=== PATIENT | female | born 1985 | race Caucasian/White ===

== ENCOUNTER 2019-09-20 15:32 | Observation (INO) | payer OTHER ==
[~2019-09-20] VITALS: Ht 170.2 cm; Wt 81.9 kg
[2019-09-20] MEDS ORDERED: MULTCAP PO (16:12)
[2019-09-20 16:44] LABS: BASO % 0.3 % (0.0-1.0); EOS % 0.1 % (0.0-3.0); HEMATOCRIT 44.9 % (36.0-47.0); HEMOGLOBIN 14.4 g/dl (12.0-15.5); LYMPH # 1.1 10^3/uL (1.5-5.0); LYMPH % 12.4 % (24.0-44.0); MEAN CORPUSCULAR HEMOGLOBIN 28.8 pg (27.0-33.0); MEAN CORPUSCULAR HGB CONC 32.1 g/dl (32.0-36.5); MEAN CORPUSCULAR VOLUME 89.8 fl (80.0-96.0); MONO # 0.5 10^3/uL (0.0-0.8); MONO % 5.6 % (0.0-5.0); NEUTROPHILS # 7.3 10^3/uL (1.5-8.5); NEUTROPHILS % 81.4 % (36.0-66.0); PLATELET COUNT, AUTOMATED 212 10^3/uL (150-450); WHITE BLOOD COUNT 8.9 10^3/uL (4.0-10.0)
[2019-09-20 16:55] LABS: PROTHROMBIN TIME 12.9 SECONDS (11.8-14.0)
[2019-09-20 16:56] LABS: PARTIAL THROMBOPLASTIN TIME 27.5 SECONDS (25.0-38.4)
[2019-09-20 17:07] LABS: CK-MB VALUE MASS 1.2 NG/ML (<3.6); CPK CREATINE PHOSPHOKINASE 107 U/L (26-192); MB/CK RELATIVE INDEX 1.12 (< OR =4); TROPONIN I < 0.02 NG/ML (< 0.10)
[2019-09-20] MEDS ORDERED: METOCLOPRAMIDE INJ 10MG/2ML VIAL (J2765 PER 1) IV ONE (17:15)
[2019-09-20 17:42] LABS: AMPHETAMINES LEVEL URINE NEGATIVE (NEGATIVE); BARBITURATES URINE NEGATIVE (NEGATIVE); BENZODIAZEPINES URINE NEGATIVE (NEGATIVE); CANNABINOIDS URINE NEGATIVE (NEGATIVE); COCAINE METABOLITE URINE NEGATIVE (NEGATIVE); METHADONE URINE NEGATIVE (NEGATIVE); OPIATES URINE NEGATIVE (NEGATIVE); PHENCYCLIDINE URINE NEGATIVE (NEGATIVE)
--- NOTE | 2019-09-20 17:48 | ECGEPIP ---
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
--- NOTE | 2019-09-20 19:22 | REPVR ---
PROCEDURE INFORMATION: Exam: MR Head Without Contrast Exam date and time: 09/20/2019 6:50 PM Age: 34 years old Clinical indication: Numbness / parasthesia; Left; Patient HX: Sudden onset of high BP, h/a, blurry vision and lt side weakness, that has since subsided, nki; Additional info: Vision loss TECHNIQUE: Imaging protocol: MR of the head without contrast. COMPARISON: CT Head without contrast 09/20/2019 3:59 PM FINDINGS: Brain: There are scattered T2/FLAIR hyperintensities in the periventricular white matter of bilateral hemispheres. No acute infarct. Ventricles: Normal. No ventriculomegaly. Bones/joints: Unremarkable. Sinuses: Normal as visualized. No acute sinusitis. Mastoid air cells: Normal as visualized. No mastoid effusion. Orbits: Unremarkable. Soft tissues: Unremarkable. Other findings: No hemorrhage. IMPRESSION: Scattered T2/FLAIR hyperintensities in the periventricular white matter of bilateral hemispheres. Findings may suggest demyelinating disease. Electronically signed by: Maury Quesada On 09/20/2019 19:22:18 PM
--- NOTE | 2019-09-20 19:41 | REPVR ---
PROCEDURE INFORMATION: Exam: MR Angiogram Head Without Contrast, Arteries Exam date and time: 09/20/2019 6:50 PM Age: 34 years old Clinical indication: Numbness; Patient HX: Sudden onset of high BP, h/a, blurry vision and lt side weakness, that has since subsided, nki; Additional info: Vision loss TECHNIQUE: Imaging protocol: MR angiogram head without contrast. Exam focused on the arteries. 3D rendering: MIP and/or 3D reconstructed images were created by the technologist. COMPARISON: CT Head without contrast 09/20/2019 3:59 PM FINDINGS: Anterior cerebral arteries: Intracranial segment is patent with no significant stenosis. No aneurysm. Right internal carotid artery: Intracranial segment is patent with no significant stenosis. No aneurysm. Right middle cerebral artery: No occlusion or significant stenosis. No aneurysm. Right posterior cerebral artery: No occlusion or significant stenosis. No aneurysm. Right vertebral artery: No occlusion or significant stenosis. No aneurysm. Left internal carotid artery: Intracranial segment is patent with no significant stenosis. No aneurysm. Left middle cerebral artery: No occlusion or significant stenosis. No aneurysm. Left posterior cerebral artery: No occlusion or significant stenosis. No aneurysm. Left vertebral artery: No occlusion or significant stenosis. No aneurysm. Basilar artery: No occlusion or significant stenosis. No aneurysm. IMPRESSION: No acute abnormality. Electronically signed by: Maury Quesada On 09/20/2019 19:41:32 PM
[2019-09-20] MEDS ORDERED: METOPROLOL TART 25 MG TABLET PO ONE (20:45)
[2019-09-20] MEDS ORDERED: lisinopriL 20 MG TAB PO ONE (20:45)
[2019-09-20] MEDS ORDERED: ACETAMINOPHEN TAB 650MG DOSE (2X325MG) PO PRN (20:45)
--- NOTE | 2019-09-20 20:46 | HPEPDOC ---
General Date of Admission 09/20/19 Date of Service: Sep 20, 2019 Chief Complaint The patient is a 34-year-old female admitted with a reason for visit of Migraine. Source: Patient Timing/Duration: 4-6 hours Severity: Moderate History of Present Illness Patient is 34 years old female with significant past medical history of migraine presented to the hospital with left arm paresthesia and blurry vision. Patient stated that in the morning she developed blurriness of the vision for both eyes and loss of vision for a few seconds for left eye, painless. Patient never had symptoms before. In ER CT head was negative for stroke. MRI of the brain showed Scattered T2/FLAIR hyperintensities in the periventricular white matter of bilateral hemispheres. Findings may suggest demyelinating disease. Also patient was found to have elevated blood pressure of 193/88 with tachycardia. Home Medications Scheduled Multivitamin (Multivitamins) 1 Each Capsule, 1 CAP PO DAILY, (Reported) Allergies Coded Allergies: No Known Allergies (Unverified , 09/20/19) Past Medical History Medical History Migraine, one episode of pancreatitis in the young age Family History Both parents have hypertension Social History * Smoker: Denies Alcohol: occationally Drugs: denies A-FIB/CHADSVASC A-FIB History Current/History of A-Fib/PAF?: No Current PO Anticoag Therapy: No Review of Systems Constitutional: Denies: Chills, Fever Eyes: Reports: Vision change ENT: Reports: Head Aches Skin: Denies: Rash, Lesions Pulmonary: Denies: Dyspnea Cardiovascular: Denies: Chest Pain Gastrointestinal: Denies: Vomiting Hematologic: Denies: Bruising, Bleeding Excessively Endocrine: Denies: Polydipsia Musculoskeletal: Denies: Neck Pain Neurological: Reports: Other Symptoms (left arm paresthesia, vision blurriness) Psych: Reports: Mood Normal Physical Examination General Exam: Positive: Alert, Cooperative, Moderate Distress Eye Exam: Positive: PERRLA ENT Exam: Positive: Atraumatic Neck Exam: Positive: Supple; Negative: JVD Chest Exam: Positive: Clear to auscultation Heart Exam: Positive: Rate Normal Telemetry: Positive: No significant arrhythmia Abdomen Exam: Positive: Normal bowel sounds Extremity Exam: Negative: Clubbing Skin Exam: Positive: Nl turgor and temperature Neuro Exam: Positive: Normal Gait, Strength at 5/5 X4 ext, Normal Tone, Cranial Nerves 3-12 NL, Reflexes 2+ Vital Signs Vital Signs Date Time Temp Pulse Resp B/P (MAP) Pulse Ox O2 Delivery O2 Flow Rate FiO2 09/20/19 19:46 99.5 111 18 176/81 (112) 99 Room Air Laboratory Data Labs 24H Laboratory Tests 2 09/20/19 16:23: Immature Granulocyte % (Auto) 0.2, Neutrophils (%) (Auto) 81.4H, Lymphocytes (%) (Auto) 12.4L, Monocytes (%) (Auto) 5.6H, Eosinophils (%) (Auto) 0.1, Basophils (%) (Auto) 0.3, Neutrophils # (Auto) 7.3, Lymphocytes # (Auto) 1.1L, Monocytes # (Auto) 0.5, Eosinophils # (Auto) 0.0, Basophils # (Auto) 0.0, Nucleated Red Blood Cells % (auto) 0.0, Prothrombin Time 12.9, Prothromb Time International Ratio 1.00, Activated Partial Thromboplast Time 27.5, Total Creatine Kinase 107, Creatine Kinase MB 1.2, Creatine Kinase MB Relative Index 1.12, Troponin I < 0.02 09/20/19 16:24: POC Glucose (Misc Panel) 84, POC Sodium (Misc Panel) 139, POC Potassium (Misc Panel) 3.8, POC Chloride (Misc Panel) 105, POC Total CO2 (Misc Panel) 20.0L, POC Blood Urea Nitrogen (Misc Panel 22, POC Ionized Calcium (Misc Panel) 4.8, POC Creatinine (Misc Panel) 1.0, POC Hematocrit (Misc Panel) 46.0 09/20/19 16:26: POC Beta HCG, Quantitative < 5.0 09/20/19 17:09: Urine Color STRAW, Urine Appearance CLEAR, Urine pH 6.0, Urine Specific [place] 1.006, Urine Protein NEGATIVE, Urine Glucose (UA) NEGATIVE, Urine Ketones 1+H, Urine Blood NEGATIVE, Urine Nitrite NEGATIVE, Urine Bilirubin NEGATIVE, Urine Urobilinogen 0.2, Urine Leukocyte Esterase NEGATIVE, Urine WBC (Auto) 1, Urine RBC (Auto) 0, Urine Hyaline Casts (Auto) 0, Urine Bacteria (Auto) 1+H, Urine Squamous Epithelial Cells 1, Urine Sperm (Auto) , Urine Opiates Screen NEGATIVE, Urine Methadone Screen NEGATIVE, Urine Barbiturates Screen NEGATIVE, Urine Phencyclidine Screen NEGATIVE, Urine Amphetamines Screen NEGATIVE, Urine Benzodiazepines Screen NEGATIVE, Urine Cocaine Metabolite Screen NEGATIVE, Urine Cannabinoids Screen NEGATIVE CBC/BMP Laboratory Tests 09/20/19 16:23 Assessment/Plan Patient is 34 years old female with significant past medical history of migraine presented to the hospital with left arm paresthesia and blurry vision. Patient stated that in the morning she developed blurriness of the vision for both eyes and loss of vision for a few seconds for left eye, painless. Patient never had symptoms before. In ER CT head was negative for stroke. MRI of the brain showed Scattered T2/FLAIR hyperintensities in the periventricular white matter of bilateral hemispheres. Findings may suggest demyelinating disease. Also patient was found to have elevated blood pressure of 193/88 with tachycardia. Problems (1) Vision changes Status: Acute Problem Text: MRI showed MRI of the brain showed Scattered T2/FLAIR hyperintensities in the periventricular white matter of bilateral hemispheres I talked to neurologist Dr Hogan, he recommended MRI of the brain with sequences There is concern for multiple sclerosis flare (2) Demyelinating disorder Status: Acute Problem Text: We will proceed with brain MRI and neck MRI with contrast (3) Hypertensive urgency Status: Acute Problem Text: Most likely due to acute stress due to aforementioned symptoms Lisinopril 20 mg by mouth We'll give labetalol IV if blood pressure continues to be elevated Plan / VTE VTE Prophylaxis Ordered?: No VTE Exclusion Mechanical Proph: Low Risk for VTE WINSTON HOOD DO Sep 20, 2019 20:46
[2019-09-20] MEDS ORDERED: PILL CUTTER 1 EACH XX ONE (22:01)
[2019-09-20 22:04] VITALS: BP 142/91
[2019-09-20] MEDS ORDERED: PROHANCE 279.3MG/ML 15ML VIAL As Ordered ONE (23:47)
[2019-09-20] MEDS ORDERED: PROHANCE 279.3MG/ML 5ML VIAL As Ordered ONE (23:47)
--- NOTE | 2019-09-21 00:34 | REPVR ---
PROCEDURE INFORMATION: Exam: MR Cervical Spine Without and With Contrast Exam date and time: 09/20/2019 11:13 PM Age: 34 years old Clinical indication: Numbness; Patient HX: Sudden onset of high BP, h/a, blurry vision and lt side weakness, that has since subsided, nki prior from earlier today on pacs, R/O ms TECHNIQUE: Imaging protocol: Multiplanar magnetic resonance images of the cervical spine without and with intravenous contrast. Contrast material: PROHANCE; Contrast volume: 16 ml; Contrast route: INTRAVENOUS (IV); COMPARISON: No relevant prior studies available. FINDINGS: Vertebrae: Unremarkable. No abnormal enhancement. Spinal cord: Normal signal. No cord compression. No abnormal enhancement. C2-C3: No significant disc disease. No significant spinal stenosis. C3-C4: No significant disc disease. No significant spinal stenosis. C4-C5: No significant disc disease. No significant spinal stenosis. C5-C6: Posterior disc bulge with annular fissure causing mild central spinal canal stenosis. Mild right neural foraminal narrowing. Left neural foramina is patent. C6-C7: Minimal posterior disc bulge causing mild indentation on thecal sac. Mild narrowing of the left neural foramina. Right neural foramina is patent. C7-T1: No significant disc disease. No significant spinal stenosis. Vertebral arteries: Expected flow voids in the vertebral arteries. Soft tissues: Unremarkable. IMPRESSION: Normal cord signal. No abnormal enhancement. No MS plaque is seen. No acute fracture. Mild degenerative disc disease at C5/C6 and C6/C7 as described above. Please see above dictation for individual levels. Electronically signed by: So Banks On 09/21/2019 00:33:40 AM
[2019-09-21 00:37] VITALS: BP 134/85
--- NOTE | 2019-09-21 01:07 | REPVR ---
PROCEDURE INFORMATION: Exam: MR Head With Contrast Exam date and time: 09/20/2019 11:13 PM Age: 34 years old Clinical indication: Numbness / parasthesia; Left; Patient HX: Sudden onset of high BP, h/a, blurry vision and lt side weakness, that has since subsided, nki prior from earlier today on pacs, R/O ms TECHNIQUE: Imaging protocol: MR of the head with intravenous contrast. 3D rendering: MIP and/or 3D reconstructed images were created by the technologist. Contrast material: PROHANCE; Contrast volume: 16 ml; Contrast route: INTRAVENOUS (IV); COMPARISON: MRI-Brain without Contrast 09/20/2019 6:45 PM FINDINGS: Brain: Again identified are multiple T2 FLAIR hyperintensity in the subcortical and deep white matter of bilateral cerebral hemispheres without any associated postcontrast enhancement given limitation of the motion on postcontrast images. Ventricles: Normal. No ventriculomegaly. Bones/joints: Unremarkable. Sinuses: Normal as visualized. No acute sinusitis. Mastoid air cells: Normal as visualized. No mastoid effusion. Orbits: Unremarkable. Soft tissues: Unremarkable. IMPRESSION: No axial or sagittal postcontrast images are given. Only coronal images degraded by motion are submitted for interpretation. Again identified are multiple T2 FLAIR hyperintensity in the subcortical and deep white matter of bilateral cerebral hemispheres without any associated postcontrast enhancement given limitation of the motion on postcontrast images. Findings most likely represent demyelinating disease such as multiple scleroses in young patient, clinical correlation is recommended. Electronically signed by: So Banks On 09/21/2019 01:06:45 AM
[2019-09-21 06:00] VITALS: BP 107/68
[2019-09-21 06:33] LABS: HEMATOCRIT 43.6 % (36.0-47.0); HEMOGLOBIN 14.1 g/dl (12.0-15.5); MEAN CORPUSCULAR HEMOGLOBIN 29.3 pg (27.0-33.0); MEAN CORPUSCULAR HGB CONC 32.3 g/dl (32.0-36.5); MEAN CORPUSCULAR VOLUME 90.6 fl (80.0-96.0); PLATELET COUNT, AUTOMATED 202 10^3/uL (150-450); RED BLOOD COUNT 4.81 10^6/uL (4.00-5.40); WHITE BLOOD COUNT 8.6 10^3/uL (4.0-10.0)
[2019-09-21 07:15] LABS: BLOOD UREA NITROGEN 16 MG/DL (7-18); CALCIUM LEVEL 8.9 MG/DL (8.5-10.1); CARBON DIOXIDE LEVEL 21 MEQ/L (21-32); CHLORIDE LEVEL 108 MEQ/L (98-107); CREATININE FOR GFR 0.91 MG/DL (0.55-1.30); GLOMERULAR FILTRATION RATE > 60.0 (>60); GLUCOSE, FASTING 76 MG/DL (70-100); MAGNESIUM LEVEL 1.9 MG/DL (1.8-2.4); POTASSIUM SERUM 3.8 MEQ/L (3.5-5.1); SODIUM LEVEL 140 MEQ/L (136-145)
--- NOTE | 2019-09-21 09:17 | REP ---
REASON: Headache and ocular disturbance. PRIORS: None. There is a minimal loss of density in the deep white matter of the right frontal lobe region and frontoparietal region. This is an extremely subtle suggested finding. The deep white matter is otherwise normal. There is no acute intracranial hemorrhage. There is no shift of the midline structures. The ventricles and sulci are within normal limits. The posterior fossa is within normal limits. The orbital and petrous structures, cerebellopontine angles, sella turcica, cavernous, and paracavernous structures are within normal limits. 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 IMPRESSION: Extremely subtle finding of possible decreased density in the deep white matter of the right frontal lobe and frontoparietal region. Since the patient has ocular disturbance, I would suggest followup with brain MRI. Electronically Signed by Andrew Connor DO 09/21/2019 09:38 A
--- NOTE | 2019-09-21 09:27 | REP ---
CHEST PORTABLE: REASON: Stroke-like symptoms. FINDINGS: The technique utilized in obtaining the radiograph has magnified the cardiac silhouette and accentuated the interstitial markings. The superior mediastinal structures are midline. The cardiac silhouette is unremarkable in size, shape, and position. The diaphragmatic surfaces of the lungs are regular, and the costophrenic angles are clear. The pulmonary dockery are clear. The imaged osseous structures are intact. IMPRESSION: There is no acute cardiopulmonary disease. Electronically Signed by Andrew Connor DO 09/21/2019 09:39 A
--- NOTE | 2019-09-21 16:51 | DS.PDOC ---
Discharge Summary General Date of Admission Sep 20, 2019 at 20:31 Date of Discharge 09/21/19 Discharge Summary PROCEDURES PERFORMED DURING STAY: [None]. ADMITTING DIAGNOSES: Demyelinating disorder Vision changes Hypertensive urgency DISCHARGE DIAGNOSES: Demyelinating disorder Vision changes Hypertensive urgency COMPLICATIONS/CHIEF COMPLAINT: Tia,Vision Changes. HISTORY OF PRESENT ILLNESS: Patient is 34 years old female with significant past medical history of migraine presented to the hospital with left arm paresthesia and blurry vision. Patient stated that in the morning she developed blurriness of the vision for both eyes and loss of vision for a few seconds for left eye, painless. Patient never had symptoms before. In ER CT head was negative for stroke. MRI of the brain showed Scattered T2/FLAIR hyperintensities in the periventricular white matter of bilateral hemispheres. Findings may suggest demyelinating disease. Also patient was found to have elevated blood pressure of 193/88 with tachycardia. HOSPITAL COURSE: Following issue addressed (1) Vision changes MRI showed MRI of the brain showed Scattered T2/FLAIR hyperintensities in the periventricular white matter of bilateral hemispheres I talked to neurologist Dr Hogan, he recommended MRI of the brain with sequences. See results below There is concern for multiple sclerosis flare (3) Hypertensive urgency Most likely due to acute stress due to aforementioned symptoms Lisinopril 20 mg by mouth DISCHARGE MEDICATIONS: Please see below. ALLERGIES: Please see below. PHYSICAL EXAMINATION ON DISCHARGE: VITAL SIGNS: Please see below. General Exam: Positive: Alert, Cooperative, Moderate Distress Eye Exam: Positive: PERRLA ENT Exam: Positive: Atraumatic Neck Exam: Positive: Supple; Negative: JVD Chest Exam: Positive: Clear to auscultation Heart Exam: Positive: Rate Normal Telemetry: Positive: No significant arrhythmia Abdomen Exam: Positive: Normal bowel sounds Extremity Exam: Negative: Clubbing Skin Exam: Positive: Nl turgor and temperature Neuro Exam: Positive: Normal Gait, Strength at 5/5 X4 ext, Normal Tone, Cranial Nerves 3-12 NL, Reflexes 2+ LABORATORY DATA: Please see below. IMAGING: PROCEDURE INFORMATION: Exam: MR Head With Contrast Exam date and time: 09/20/2019 11:13 PM Age: 34 years old Clinical indication: Numbness / parasthesia; Left; Patient HX: Sudden onset of high BP, h/a, blurry vision and lt side weakness, that has since subsided, nki prior from earlier today on pacs, R/O ms TECHNIQUE: Imaging protocol: MR of the head with intravenous contrast. 3D rendering: MIP and/or 3D reconstructed images were created by the technologist. Contrast material: PROHANCE; Contrast volume: 16 ml; Contrast route: INTRAVENOUS (IV); COMPARISON: MRI-Brain without Contrast 09/20/2019 6:45 PM FINDINGS: Brain: Again identified are multiple T2 FLAIR hyperintensity in the subcortical and deep white matter of bilateral cerebral hemispheres without any associated postcontrast enhancement given limitation of the motion on postcontrast images. Ventricles: Normal. No ventriculomegaly. Bones/joints: Unremarkable. Sinuses: Normal as visualized. No acute sinusitis. Mastoid air cells: Normal as visualized. No mastoid effusion. Orbits: Unremarkable. Soft tissues: Unremarkable. IMPRESSION: No axial or sagittal postcontrast images are given. Only coronal images degraded by motion are submitted for interpretation. Again identified are multiple T2 FLAIR hyperintensity in the subcortical and deep white matter of bilateral cerebral hemispheres without any associated postcontrast enhancement given limitation of the motion on postcontrast images. Findings most likely represent demyelinating disease such as multiple scleroses in young patient, clinical correlation is recommended. Electronically signed by: Harris Nelson On 09/21/2019 01:06:45 AM DD: HARRIS NELSON MD 09/20/19 2313 DT: FAMILIA 09/21/19 0106 DS: YOLANDA 09/21/19 010 [~ rep ct labl] PROGNOSIS: Fair ACTIVITY: [As tolerated]. DIET: Regular DISCHARGE PLAN: Follow-up with neurologist in the outpatient settings DISPOSITION: 01 Home, Self-Care. DISCHARGE CONDITION: [Stable]. TIME SPENT ON DISCHARGE: Greater than 40 minutes. Vital Signs/I&Os Vital Signs Date Time Temp Pulse Resp B/P (MAP) Pulse Ox O2 Delivery O2 Flow Rate FiO2 09/21/19 06:00 99.3 85 16 107/68 (81) 100 Room Air I&O- Last 24 Hours up to 6 AM 09/21/19 06:00 Intake Total 300 ml Output Total 0 ml Balance 300 ml Laboratory Data Labs 24H Laboratory Tests 2 09/20/19 17:09: Urine Color STRAW, Urine Appearance CLEAR, Urine pH 6.0, Urine Specific [place] 1.006, Urine Protein NEGATIVE, Urine Glucose (UA) NEGATIVE, Urine Ketones 1+H, Urine Blood NEGATIVE, Urine Nitrite NEGATIVE, Urine Bilirubin NEGATIVE, Urine Urobilinogen 0.2, Urine Leukocyte Esterase NEGATIVE, Urine WBC (Auto) 1, Urine RBC (Auto) 0, Urine Hyaline Casts (Auto) 0, Urine Bacteria (Auto) 1+H, Urine Squamous Epithelial Cells 1, Urine Sperm (Auto) , Urine Opiates Screen NEGATIVE, Urine Methadone Screen NEGATIVE, Urine Barbiturates Screen NEGATIVE, Urine Ph encyclidine Screen NEGATIVE, Urine Amphetamines Screen NEGATIVE, Urine Benzodiazepines Screen NEGATIVE, Urine Cocaine Metabolite Screen NEGATIVE, Urine Cannabinoids Screen NEGATIVE 09/21/19 06:19: Nucleated Red Blood Cells % (auto) 0.0, Anion Gap 11, Glomerular Filtration Rate > 60.0, Calcium Level 8.9, Magnesium Level 1.9 CBC/BMP Laboratory Tests 09/21/19 06:19 Discharge Medications Scheduled Multivitamin (Multivitamins) 1 Each Capsule, 1 CAP PO DAILY, (Reported) Allergies Coded Allergies: No Known Allergies (Unverified , 09/20/19) WINSTON HOOD DO Sep 21, 2019 16:51
== END 2019-09-21 14:22 | disposition home or self-care (01) ==
LOC: M ED 15:32 → M ED INP 20:31 → ENRESERV 21:21 → M MSPAV 09-21 00:40
PROVIDERS: ADMIT Internal Medicine; ATTEND Internal Medicine
DX: G37.9 Demyelinating disease of central nervous system, unspecified (principal); H53.8 Other visual disturbances; I16.0 Hypertensive urgency; R20.2 Paresthesia of skin; G43.909 Migraine, unspecified, not intractable, without status migrainosus; Z87.19 Personal history of other diseases of the digestive system
CPT/HCPCS: 36415; 70450; 70544; 70551; 70552; 71045; 72156; 80047; 80048; 80307; 81001; 82550; 82553; 83735; 84484; 84702; 85025; 85027; 85610; 85730; 86850; 86900; 86901; 93005; 93041; 94760; 96374; 99285; A9576; J2765

== ENCOUNTER → 2020-01-28 | Outpatient (REF) | payer OTHER ==
[~2020-01-28] MED LIST: MULTCAP PO
== END ==
LOC: M LAB REF 19:06
PROVIDERS: ATTEND Family Medicine
DX: J02.9 Acute pharyngitis, unspecified (principal)

== ENCOUNTER → 2020-06-01 | Outpatient (CLI) | payer OTHER ==
--- NOTE | 2020-06-01 11:40 | REPPI ---
INDICATION: S90.122A CONTUSION OF LEFT LESSER TOW W/O DAMAGE TO NAIL COMPARISON: None. TECHNIQUE: AP, lateral, bilateral oblique views left foot. FINDINGS: A very subtle nondisplaced fracture at the head of the 5th toe proximal phalanx is suspected and should be correlated with physical examination and mechanism of injury. The remainder of the examination is essentially age-appropriate. IMPRESSION: Findings suggest very subtle nondisplaced fracture at the head of the 5th toe proximal phalanx.. <Electronically signed by Satnam Sheriff > 06/01/20 [id number]
== END ==
LOC: M PLAIMG 10:48
PROVIDERS: ATTEND Physician Assistant
DX: S92.355A Nondisplaced fracture of fifth metatarsal bone, left foot, initial encounter for closed fracture (principal); Y92.9 Unspecified place or not applicable; Y93.9 Activity, unspecified; Y99.9 Unspecified external cause status